=== PATIENT | male | born 1975 | race Caucasian/White ===

== ENCOUNTER 2017-07-25 21:14 | Emergency (ER) | payer BC, OTHER ==
--- NOTE | 2017-07-25 21:26 | PDOC ---
Rapid Medical Evaluation Chief Complaint: Respiratory Time Seen by Provider: 07/25/17 21:22 Medical Evaluation: Allergies Allergy/AdvReac Type Severity Reaction Status Date / Time No Known Allergies Allergy Verified 07/25/17 21:21 07/25/17 21:22 CC: cough x 2 weeks. tactile temps 1 week ago now with persistent cough. PE; patient alert ox3. breath sounds clear. PLAn; xray Patient to the ED for further management of care. 07/25/17 21:24
[2017-07-25 21:27] VITALS: BP 118/79; PULSE 84; TEMP 99; BMI 40.4
--- NOTE | 2017-07-25 21:44 | PDOC ---
History of Present Illness - General Chief Complaint: Respiratory Stated Complaint: COUGH Time Seen by Provider: 07/25/17 21:22 History Source: Patient - History of Present Illness Timing/Duration: reports: other (2 weeks) Associated Symptoms: reports: cough, nasal congestion, nasal drainage. denies: chest pain/soreness, earache, fever/chills, muscle aches, shortness of breath, sinus infection, sore throat, wheezing Past History - Past Medical History Allergies/Adverse Reactions: Allergies Allergy/AdvReac Type Severity Reaction Status Date / Time No Known Allergies Allergy Verified 07/25/17 21:21 Home Medications: Ambulatory Orders Benzonatate [Tessalon Pearls -] 100 mg PO TID #21 capsule 07/25/17 COPD: No - Suicide/Smoking/Psychosocial Hx Smoking History: Never smoked Review of Systems - Review of Systems Constitutional: No: Chills, Fever Respiratory: Yes: Cough. No: Shortness of Breath, Wheezing Cardiac (ROS): No: Chest Pain *Physical Exam - Vital Signs Last Vital Signs Temp Pulse Resp BP Pulse Ox 99 F 84 18 118/79 96 07/25/17 21:22 07/25/17 21:22 07/25/17 21:22 07/25/17 21:22 07/25/17 21:22 - Physical Exam General Appearance: Yes: Appropriately Dressed. No: Apparent Distress HEENT: positive: Normal ENT Inspection, Normal Voice. negative: Scleral Icterus (R), Scleral Icterus (L) Neck: positive: Supple. negative: Lymphadenopathy (R), Lymphadenopathy (L) Respiratory/Chest: positive: Lungs Clear, Normal Breath Sounds. negative: Respiratory Distress Cardiovascular: positive: Regular Rate, S1, S2 Integumentary: positive: Dry, Warm Neurologic: positive: Fully Oriented, Alert, Normal Mood/Affect Medical Decision Making - Medical Decision Making 07/25/17 21:43 42-year-old male, no significant history here with 2 weeks of mostly dry cough with nasal congestion. No hemoptysis, shortness of breath, fever, chills, body aches, nausea, vomiting or diarrhea. No tobacco history. Patient well- appearing and stable with unremarkable exam. Symptoms most likely viral. Will discharge with supportive treatment. *DC/Admit/Observation/Transfer Diagnosis at time of Disposition: URI (upper respiratory infection) Qualifiers: URI type: unspecified viral URI Qualified Code(s): J06.9 - Acute upper respiratory infection, unspecified - Discharge Dispostion Disposition: HOME Condition at time of disposition: Good - Prescriptions Prescriptions: Benzonatate [Tessalon Pearls -] 100 mg PO TID #21 capsule - Referrals - Patient Instructions Printed Discharge Instructions: DI for Viral Upper Respiratory Infection -- Adult Additional Instructions: Rest, drink plenty of fluids, take medication as directed. Use Sudafed and Breathe Right strips at night as needed for congestion Follow-up with your doctor as needed - Post Discharge Activity
== END 2017-07-25 21:54 | disposition home or self-care (01) ==
LOC: JERFT 21:14
DX: J06.9 Acute upper respiratory infection, unspecified (principal)
CPT/HCPCS: 99281-25

== ENCOUNTER 2021-06-24 11:43 | Emergency (ER) | payer OTHER ==
[2021-06-24 11:54] VITALS: TEMP 98.8; BMI 39.0
[2021-06-24] MEDS ORDERED: CASIRIVIMAB/IMDEVIMAB 10 ML in SODIUM CHLORIDE 100 ML IVPB ONE (13:22)
[2021-06-24 14:15] LABS: HEMOGLOBIN 15.3 GM/dL (11.7-16.9); MCH 30.4 pg (25.7-33.7); MEAN CELL VOLUME 89.4 fl (80-96); MEAN PLT VOLUME 9.9 fl (7.5-11.1); PLATELET COUNT 91 10^3/uL (134-434); RBC 5.04 M/mm3 (4.00-5.60); RDW 13.8 % (11.9-15.9); WHITE BLOOD COUNT 5.4 K/mm3 (4.0-10.0)
[2021-06-24 14:35] LABS: ALBUMIN 3.5 g/dl (3.4-5.0); BLOOD UREA NITROGEN 9.7 mg/dL (7-18); CALCIUM 8.7 mg/dL (8.5-10.1)
[2021-06-24 14:38] LABS: CREATININE 0.8 mg/dL (0.55-1.3)
[2021-06-24 14:39] LABS: BILIRUBIN,TOTAL 1.6 mg/dL (0.2-1)
[2021-06-24 14:40] LABS: TOT PROT 7.4 g/dl (6.4-8.2)
[2021-06-24 15:46] VITALS: BP 114/81; PULSE 94
== END 2021-06-24 15:50 | disposition home or self-care (01) ==
LOC: JCOVINFU 11:43
PROC: 3E033GC Introduction of Other Therapeutic Substance into Peripheral Vein, Percutaneous Approach (ICD-10-PCS; principal; 2021-06-24)
DX: U07.1 COVID-19 (principal)
CPT/HCPCS: 36415; 80053; 85027; 99284-25; Q0240

== ENCOUNTER 2023-04-25 22:48 | Emergency (ER) | payer OTHER ==
[2023-04-25 22:54] VITALS: BP 121/80; PULSE 75; RESP 19; TEMP 98.5; BMI 40.4
[2023-04-25] MEDS ORDERED: DIPHTH,PERTUSS(ACELL),TET 0.5 ML DISP.SYRIN IM ONE ×2 (23:09→23:11)
== END 2023-04-25 23:20 | disposition home or self-care (01) ==
LOC: FER 22:48
PROC: 3E0234Z Introduction of Serum, Toxoid and Vaccine into Muscle, Percutaneous Approach (ICD-10-PCS; principal; 2023-04-25)
DX: S61.011A Laceration without foreign body of right thumb without damage to nail, initial encounter (principal); W26.0XXA Contact with knife, initial encounter; Y92.000 Kitchen of unspecified non-institutional (private) residence as the place of occurrence of the external cause
CPT/HCPCS: 90715; 99282-25